=== PATIENT | female | born 1960 | race Caucasian/White ===

== ENCOUNTER 2021-02-13 10:03 | Emergency (ER) | payer BC, SELFPAY ==
--- NOTE | 2021-02-13 10:19 | ED.URI ---
HPI - URI/Sore Throat General Chief Complaint: Upper Respiratory Infection Stated Complaint: sorethroat,cough,runny nose Time Seen by Provider: 02/13/21 10:19 Source: patient, RN notes reviewed and old records reviewed History of Present Illness HPI Narrative: 60-year-old female presents to the [facility] with complaints of sore throat, cough and runny nose. Patient states that started Saturday, 6 days ago. Has improvement with Mucinex. Patient reports that she is Covid vaccinated and boosted. Also vaccinated against the flu this year. Patient reports that she was tested negative for COVID-19 at [facility] on Saturday, 3 days ago MD elicited complaint: cough, sore throat and rhinorrhea Related Data Allergies Allergy/AdvReac Type Severity Reaction Status Date / Time phenytoin Allergy Unknown Nausea Verified 02/13/21 10:37 promethazine Allergy Unknown Unknown Verified 02/13/21 10:37 Review of Systems Review of Systems: All systems reviewed & are unremarkable except as noted in HPI and below Constitutional: Constitutional: Reports no additional constitutional complaints Eyes: Eyes: Reports no additional eye complaints, Denies change in vision and Denies photophobia ENT: Reports as per HPI, Reports nasal congestion and Reports sore throat Cardiovascular: Cardiovascular: Denies chest pain Respiratory: Respiratory: Reports as per HPI, Denies chest congestion, Reports cough, Denies dyspnea and Denies wheezing Gastrointestinal: Gastrointestinal: Reports no additional gastrointestinal complaints Musculoskeletal: Musculoskeletal: Reports no additional musculoskeletal complaints Integumentary/Breasts: Skin/Breast: Reports system reviewed and no additional complaints, except as docu Neurologic: Reports system reviewed and no additional complaints, except as documented Psychiatric: Psychiatric: Reports no additional psychiatric complaints Allergic/Immunologic: Allergic/Immunologic: Reports no additional allergic/immunologic complaints [facility] Past Medical History Medical History (Updated 02/13/21 @ 10:49 by Radha Alfred) Rheumatoid arthritis of unspecified site with involvement of other organs and systems Vitamin D deficiency Surgical History Surgical History H/O tubal ligation H/O: hysterectomy Hx of tonsillectomy S/P removal of right ovary Family History Family History Sibling Depression Hypertension Family history of elevated blood lipids Grandparent Family history of Alzheimer's disease Family history of malignant neoplasm of brain Social History Social History Smoking status: Never smoker Second hand tobacco smoke exposure: No Smoking end date: 02/25/83 Alcohol intake: never Substance use: never Substance use type: does not use Gender identity (if verbalized by the patient): Female Spiritual care concerns: No Agree to blood products: Yes Comments At the time of my signature, I reviewed and agree with the nursing past medical, surgical, social, and family history. There is no relevant family history pertinent to the patient complaint. Exam Const: General: healthy appearing, no acute distress and alert Nutritional Appearance: well nourished Orientation/consciousness: patient oriented x3 Limitations: no limitations HENMT: Head: normal to inspection Ears: external ears normal, TM's normal bilaterally and EAC's normal Mouth: Yes Normal oral and palatal mucosa present and Yes lip normal Throat: uvula midline, postnasal drainage, tonsils absent and no uvular edema Eyes: Conjunctivae: conjunctivae normal Pupils: Equal, round and reactive pupils present Direct Ophthalmoscopy: no photophobia Neck: Neck: normal visual inspection, no lymphadenopathy and no meningeal signs Chest: Chest palpation & inspection: normal inspection of the chest Resp
[2021-02-13 10:29] VITALS: BP 140/83; PULSE 98; RESP 18; TEMP 37.1; O2SAT 98
== END 2021-02-13 10:47 | disposition home or self-care (01) ==
PROVIDERS: Emergency Provider Nurse Practitioner; PCP Family Medicine
DX: R09.82 Postnasal drip (principal); J06.9 Acute upper respiratory infection, unspecified; M06.9 Rheumatoid arthritis, unspecified
CPT/HCPCS: 99213; G0463

== ENCOUNTER 2025-01-31 11:15 | Emergency (ER) | payer MEDICARE, BC, SELFPAY ==
--- NOTE | ~2025-01-31 | XR_ITS ---
Examination: XR chest 2V Clinical History: cp Comparison: None Technique: PA and Lateral Findings: Cardiomediastinal silhouette normal size and configuration. Lungs clear. A few calcified granulomata. No acute bony abnormality. IMPRESSION: 1. No acute cardiopulmonary findings. Reviewed, dictated and finalized at location [facility]
--- OUTSIDE RECORDS SUMMARY | 2025-01-31 11:16 | XMS_ITS | Clinical Summary ---
Author Organization [facility] [address] [place] [id number] Care Team Providers Care Linux Solaris Administrator Name Role Phone Elza Chatterjee Primary Care Provider [phone]- [phone] Allergies Active Allergy Reactions Criticality Noted Date Comments Promethazine Other (See comments) Reaction: burning, Active Problems Problem Noted Date Diagnosed Date Rheumatoid arthritis 04/29/2012 Overview (06/01/2016): Rheumatoid arthritis Encounters Date Type Department Care Team Description 12/16/2024 8:54 AM CDT - 12/16/2024 11:59 PM CDT Hospital Encounter [address] [address] Abnormal mammogram Discharge Disposition: Discharge to home or self care 12/16/2024 8:53 AM CDT - 12/16/2024 11:59 PM CDT Hospital Encounter [facility] Office [address] [address] Abnormal mammogram Discharge Disposition: Discharge to home or self care 12/04/2024 8:41 AM CDT - 12/04/2024 11:59 PM CDT Hospital Encounter [address] [address] Screening mammogram, encounter for Discharge Disposition: Discharge to home or self care from Last 3 Months Immunizations Immunization Administration Dates Next Due Pneumococcal Polysaccharide PPV23 11/11/2012 Surgical History Surgery Date Site/Laterality Comments OTHER SURGICAL HISTORY ovarectomy TONSILLECTOMY tonsillectomy HYSTERECTOMY 02/25/2013 Family History Medical History Relation Name Comments Stomach cancer Father 2 Cancer -stoma ch; Cause of : Cancer -stomach Brain cancer Mother 2 Brain tumor; Ca use of : Brain tumor Relation Name Status Comments Father 1 (Age 61) Father 2 Mother 1 (Age 30) Mother 2 Social History Tobacco Use Types Packs/Day Years Used Date Smoking Tobacco: Never Assessed Alcohol Use Standard Drinks/Week Comments No 0 (1 standard drink = 0.6 oz pur e alcohol) Comments No Sex and Gender Information Value Date Recorded Sex Assigned at Not on file Legal Sex Female 4:57 PM SALES ESTIMATOR Gender Identity Not on file Sexual Orientation Not on file Obstetrics History Para Term AB IAB SAB Ectopic Multiple Livin g Live Births 0 0 0 0 0 0 0 0 0 0 0 Last Filed Vital Signs Vital Sign Reading Time Taken Comments Blood Pressure 115/80 05/12/2013 8:18 AM CDT Pulse 70 05/12/2013 8:18 AM CDT Temperature - - Respiratory Rate - - Oxygen Saturation - - Inhaled Oxygen Concentration - - Weight 62.5 kg (137 lb 12.6 oz) 12/04/2024 9:12 AM CDT Height 172.7 cm (5' 8) 12/04/2024 9:12 AM CDT Body Mass Index 20.95 12/04/2024 9:12 AM CDT Plan of Treatment Health Maintenance Due Date Last Done Comments Colon Cancer Screening-Colonoscopy 1960 Depression Screening 1960 Fall Risk Assessment 1960 Hepatitis C Screening 1960 Hepatitis B Screening 1976 Zoster Vaccine (2 of 3) 02/09/2015 12/15/2014 Pneumococcal vaccine 65+ (3 of 3 - PCV20 or PCV21) 06/14/2023 06/13/2018, 11/11/2012 Well Visit 65+ 10/22/2023 Covid-19 Vaccine (5 - 2024-2 6 season) 2024 06/08/2021, 12/19/2020, 05/27/2020, Additional history exists Influenza Vaccine (#1) 2024 , 12/03/2019, 11/14/2018, Additional history exists DTaP/Tdap/Td Vaccine (2 - Td or Tdap) 04/06/2025 04/06/2015 Breast Cancer Screening-Mammogram 12/04/2025 12/04/2024, 11/29/2023, 10/19/2022, Additional history exists Osteoporosis Screening-Bone Density Scan 01/16/2026 01/17/2024, 09/10/2012 Procedures Procedure Name Priority Date/Time Associated Diagnosis Comments US BREAST RIGHT LIMITED Schedule Routine, Read Routine (OP Routine) 12/16/2024 9:26 AM CDT Abnormal mammogram DIAGNOSTIC MAMMOGRAM RIGHT W ARCHIE Schedule Routine, Read Routine (OP Routine) 12/16/2024 9:02 AM CDT Abnormal mammogram SCREENING MAMMOGRAM BILATERAL W ARCHIE Schedule Routine, Read Routine (OP Routine) 12/04/2024 9:22 AM CDT Screening mammogram, encounter for DEXA AXIAL SKELETON BONE DENSITY 1 OR MORE SITES Schedule Routine, Read Routine (OP Routine) 01/17/2024 9:19 AM SALES ESTIMATOR Other primary ovarian failure from Last 3 Months or Most Recently Relevant to Health Maintenance Results * US Breast Right Limited (12/16/2024 9:26 AM CDT) Anatomical Region Laterality Modality Breast Right Ultrasound 12/16/2024 1:13 PM CDT Impressions 12/16/2024 1:13 PM CDT Possible architectural distortion within the right breast is probably benign. OVERALL FINAL ASSESSMENT: BI-RADS Category 3: Probably Benign. RECOMMENDATION: The patient should return in 6 months time for a diagnostic right mammogram. Electronically signed by: Quinten Morris 12/16/2024 1:13 PM CDT EXAMINATION: RIGHT UNILATERAL DIGITAL DIAGNOSTIC MAMMOGRAM AND DIGITAL BREAST TOMOSYNTHESIS; RIGHT BREAST SONOGRAM HISTORY: Abnormal screening study COMPARISON: 12/04/2024, 01/17/2024, 11/29/2023, 10/19/2022 TECHNIQUE: Full field digital mammographic views of the RIGHT breast were performed, including computer aided detection (CAD) and digital breast tomosynthesis (DBT). Directed ultrasound evaluation of the RIGHT breast was performed. BREAST PARENCHYMAL COMPOSITION: The breasts are heterogeneously dense, which may obscure small masses. MAMMOGRAM FINDINGS: Additional views are overall less impressive, particularly on tomographic images for architectural distortion in the screening study. There are no suspicious microcalcifications. SONOGRAM FINDINGS: Targeted right breast ultrasound was performed in the region of interest. No sonographic abnormality is appreciated. us Elzasharad Chatterjee PA [facility] MAMMO PROCEDURES Final Result * Diagnostic Mammogram Right W Archie (12/16/2024 9:02 AM CDT) Anatomical Region Laterality Modality Breast Right Mammography 12/16/2024 12:5 0 PM CDT Impressions 12/16/2024 12:50 PM CDT Possible architectural distortion within the right breast is probably benign. OVERALL FINAL ASSESSMENT: BI-RADS Category 3: Probably Benign. RECOMMENDATION: The patient should return in 6 months time for a diagnostic right mammogram. Electronically signed by: Eliz Hayden M.D. Narrative 12/16/2024 12:50 PM CDT EXAMINATION: RIGHT UNILATERAL DIGITAL DIAGNOSTIC MAMMOGRAM AND DIGITAL BREAST TOMOSYNTHESIS; RIGHT BREAST SONOGRAM HISTORY: Abnormal screening study COMPARISON: 12/04/2024, 01/17/2024, 11/29/2023, 10/19/2022 TECHNIQUE: Full field digital mammographic views of the RIGHT breast were performed, including computer aided detection (CAD) and digital breast tomosynthesis (DBT). Directed ultrasound evaluation of the RIGHT breast was performed. BREAST PARENCHYMAL COMPOSITION: The breasts are heterogeneously dense, which may obscure small masses. MAMMOGRAM FINDINGS: Additional views are overall less impressive, particularly on tomographic images for architectural distortion in the screening study. There are no suspicious microcalcifications. SONOGRAM FINDINGS: Targeted right breast ultrasound was performed in the region of interest. No sonographic abnormality is appreciated. us Elzasharad OREILLY [facility] MAMMO PROCEDURES Final Result * (ABNORMAL) Screening Mammogram Bilateral W Archie (12/04/2024 9:22 AM CDT) Anatomical Region Laterality Modality Breast Bilateral Mammography Impressions 12/04/2024 10:12 AM CDT Right 1) Architectural Distortion: Right breast architectural distortion in the upper region. Assessment: 0 - Incomplete. Diagnostic mammogram with possible ultrasound is recommended. Left No evidence of malignancy. OVERALL BI-RADS FINAL ASSESSMENT: 0 - Incomplete: Needs Additional Imaging Evaluation RECOMMENDATION: Recommend right breast diagnostic mammogram with possible ultrasound. Narrative 12/04/2024 10:12 AM CDT EXAMINATION: Screening Mammogram Bilateral W Archie: 12/04/2024 COMPARISON: Relevant prior studies available at the time of interpretation were reviewed, including the most recent mammogram on: 11/29/2023. TECHNIQUE: Mammography was performed with 2D and 3D digital breast tomosynthesis (DBT) images. CAD was utilized. BREAST PARENCHYMAL COMPOSITION: The breasts are heterogeneously dense, which may obscure small masses. FINDINGS: Right 1) Architectural Distortion: There is possible architectural distortion seen in the upper region of the right breast on the MLO view. This finding needs additional imaging evaluation. Left There is no suspicious mass, calcification, or architectural distortion. 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 FINDINGS: AP LUMBAR SPINE L1-L4: Total BMD is 0.998 g/cm2 T-score is -0.4 LEFT HIP: Total BMD is 0.863 g/cm2 T-score is -0.6 Femoral neck BMD is 0.716 g/cm2 T-score is -1.2 FRAX: 10 year risk for a major osteoporotic fracture is 9.7 %, 10 year risk for a hip fracture is 1.0 % IMPRESSION: Low Bone Mass. REFERENCE: Bone mineral density: T-Score: Normal (T-score above or = -1.0) Low bone mass (T-score between -1.0 and -2.5) replaces the previously used term osteopenia Osteoporosis (T-score = or below -2.5) Z-Score: Within the expected range for age (Z-score above -2.0) Below the expected range for age (Z-score is -2.0 or below) Please see below follow up recommendations. Medical evaluation for secondary causes of low bone mineral density may be appropriate. FRAX is a World Health Organization validated fracture risk assessment tool that calculates a person's 10 year probability of a major osteoporosis related fracture and hip fracture. According to the National Osteoporosis Foundation guidelines, postmenopausal women and men age 50 or older with low bone mass and a 10 year probability of a major osteoporosis related fracture = or greater than 20% or a 10 year probability of a hip fracture = or greater than 3% should be considered for pharmacological treatment for the prevention of osteoporosis. For further information, including treatment recommendations, please refer to the 2019 ISCD Official Positions (http://www.iscd.org) and the NOF's Clinician's Guide to Prevention and Treatment of Osteoporosis (http://www.nof.org/professionals/clinical-guidelines) THIS IS AN ELECTRONICALLY VERIFIED FINAL REPORT 01/17/2024 4:31 PM - Electronically signed by Hemal Rodriguez M.D. 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 FINDINGS: AP LUMBAR SPINE L1-L4: Total BMD is 0.998 g/cm2 T-score is -0.4 LEFT HIP: Total BMD is 0.863 g/cm2 T-score is -0.6 Femoral neck BMD is 0.716 g/cm2 T-score is -1.2 FRAX: 10 year risk for a major osteoporotic fracture is 9.7 %, 10 year risk fora hip fracture is 1.0 % IMPRESSION: Low Bone Mass. REFERENCE: Bone mineral density: T-Score: Normal (T-score above or = -1.0) Low bone mass (T-score between -1.0 and -2.5) replaces thepreviously used term osteopenia Osteoporosis (T-score = or below -2.5) Z-Score: Within the expected range for age (Z-score above -2.0) Below the expected range for age (Z-score is -2.0 or below) Please see below follow up recommendations. Medical evaluation forsecondary causes of low bone mineral density may be appropriate. FRAX is a World Health Organization validated fracture risk assessmenttool that calculates a person's 10 year probability of a major osteoporosisrelated fracture and hip fracture. According to the National OsteoporosisFoundation guidelines, postmenopausal women and men age 50 or older with low bonemass and a 10 year probability of a major osteoporosis related fracture = or greater than 20% or a 10 year probability of a hip fracture = or greaterthan 3% should be considered for pharmacological treatment for the preventionof osteoporosis. For further information, including treatment recommendations, please referto the 2019 ISCD Official Positions (http://www.iscd.org) and the NOF's Clinician's Guide to Prevention and Treatment of Osteoporosis (http://www.nof.org/professionals/clinical-guidelines) THIS IS AN ELECTRONICALLY VERIFIED FINAL REPORT 01/17/2024 4:31 PM - Electronically signed by Hemal Rodriguez M.D. MF: HARLEY Report ID: [id number] Reading Location: [id number] lEza OREILLY IMG DXA PROCEDURES Final R esult from Last 3 Months or Most Recently Relevant to Health Maintenance Insurance [facility] [employer] Care Teams Linux Solaris Administrator Relationship Specialty Start Date End Date Elza Chatterjee PA [address] [place] [id number] PCP - General Physician Transportation Operations Manager 07/10/22
--- OUTSIDE RECORDS SUMMARY | 2025-01-31 11:16 | XMS_ITS | Clinical Summary ---
Author Organization [facility] [employer] Address [address] [place] [address] Care Team Providers Care Concession Cashier Name Role Phone Unavailable Primary Care Provider Unavailabl e Source Comments [facility] [employer],non-owned Affiliates and Associated Physician Practices is amultiple site organization consisting of ambulatory clinics and hospital sitesin [place], [place], [place] and [place]. This disclosure is being madepursuant to the Care Everywhere program and may not contain all information available regarding this patient. Last updated 17.[employer] Allergies Active Allergy Reactions Criticality Noted Date Comments Promethazine Nausea and/or Vomiting 06/30/2012 Medications * Be aware that medications may not be up to date on this document. Alwaysverify current medications with the patient. methotrexate 2.5 MG tabletIndicatio ns:Rheumatoid arthritis(714.0 ) (HCC) Take 2.5 mg by mouth every 7 days. Take 6 tabs once a week Active Folic Acid 800 MCG TABSIndications :Rheumatoid arthritis(714.0 ) (HCC) Take by mouth once daily. Active Ascorbic Acid (VITAMIN C) 500 MG CAPSIndications :Rheumatoid arthritis(714.0 ) (HCC) Take by mouth once daily. Active calcium carbonate-vitam in D (CALCIUM 600+D) 600-200 MG-UNIT tabletIndicatio ns:Rheumatoid arthritis(714.0 ) (HCC),Vitamin d deficiency Take 1 Tab by mouth 2 times daily. Active estradiol (ESTRACE) 1 MG tabletIndicatio ns:Vitamin D deficiency Take 1 tablet by mouth once daily 90 tablet 3 02/07/2017 Active vitamin D, ergocalciferol, (DRISDOL) 94949 UNITS capsule Take 1 capsule by mouth every 7 days 12 capsule 3 05/29/2017 Active Active Problems Problem Noted Date Diagnosed Date Hormone replacement therapy, postmenopausal 08/26 Perimenopausal 06/30/2012 Rheumatoid arthritis 06/30/2012 Overview (01/02/2015): Vitamin D deficiency 06/30/2012 Dysfunctional uterine bleeding 06/30/2012 Immunizations Immunization Administration Dates Next Due INFLUENZA VACCINE 11/01/2016,11/10/2015 TDAP (7yrs+) 04/06/2015 Family History Medical History Relation Name Comments Cancer - Other Father stomach Cancer - Other Maternal Grandfather Alzheimer's Disease Maternal Grandmother Cancer - Other Mother Brain tumor CAD (Coronary Artery Disease) Paternal Grandfather of [place] Paternal Grandfather Depression Sister Hyperlipidemia Sister Hypertension Sister Relation Name Status Comments Father Maternal Grandfather Maternal Grandmother Alzheim ers Dz Mother Paternal Grandfather Paternal Grandmother (Age 95) di ed of old age Sister Alive Social History Tobacco Use Types Packs/Day Years Used Date Smoking Tobacco: Former Cigarettes 1 7 Smokeless Tobacco: Never Alcohol Use Standard Drinks/Week Comments No 0 (1 standard drink = 0.6 oz pur e alcohol) Comments No Sex and Gender Information Value Date Recorded Sex Assigned at Not on file Legal Sex Female 6:28 AM MEETING FACILITATOR Gender Identity Not on file Sexual Orientation Not on file Last Filed Vital Signs Vital Sign Reading Time Taken Comments Blood Pressure 110/70 07/05/2017 10:13 AM CDT Pulse 88 07/05/2017 10:13 AM CDT Temperature 36.6 C (97.8 F) 05/29/2017 8:48 AM CDT Respiratory Rate - - Oxygen Saturation 98% 07/05/2017 10:13 AM CDT Inhaled Oxygen Concentration - - Weight 60.8 kg (134 lb) 07/05/2017 10:13 AM CDT Height 172.7 cm (5' 8) 07/05/2017 10:13 AM CDT Body Mass Index 20.37 07/05/2017 10:13 AM CDT Plan of Treatment Health Maintenance Due Date Last Done Comments BONE DENSITY TESTING 1960 COLOGUARD (AGES 45-75) - COLON CA SCREENING [address] COLONOGRAPHY - COLON CA SCREENING 1960 FIT - COLON CA SCREENING 1960 FLEX SIG - COLON CA SCREENING 1960 COVID-19 VACCINE (#1) 10/22/1963 PNEUMOCOCCAL VACCINE 50+ (1 of 1 - PCV) 2008 Respiratory Syncytial Virus (RSV) Vaccine Pt: or over 60 yrs (1 - Risk 50-74 years 1-dose series) 2008 ZOSTER VACCINE (1 of 2) 2008 MAMMOGRAM 01/31/2017 01/31/2015, 08/26, 09/26/2011 (Previously completed), Additional history exists LIPID TESTING 09/01/2017 09/01/2012 COLONOSCOPY - COLON CA SCREENING 08/19/2022 08/19/2012, 02/25/2002 (Previously completed) Colorectal Cancer Screening 08/19/2022 DEPRESSION SCREENING 02/26/2024 INFLUENZA VACCINE (#1) 2024 11/01/2016, 2015 DTAP/TDAP/TD VACCINES (2 - Td or Tdap) 04/06/2025 04/06/2015 HEPATITIS C SCREENING Completed 03/12/2016, 017 HEPATITIS B VACCINE Aged Out No longe r eligible based on patient's age to complete this topic HIB VACCINE Aged Out No longer eligi ble based on patient's age to complete this topic HPV VACCINE Aged Out No longer eligi ble based on patient's age to complete this topic MENINGOCOCCAL (Group B) VACCINE SHARED DECISION-MAKING Aged Out No longer eligible based on patient's age to complete this topic MENINGOCOCCAL GROUPS A/C/Y/W VACCINE Aged Out No longer eligible based on patient's age to complete this topic Procedures Procedure Name Priority Date/Time Associated Diagnosis Comments HEPATITIS SCREEN ACUTE W/ REFLX CONFIRM 03/05/2016 8:38 AM MEETING FACILITATOR MAMMO BILAT SCREENING Routine 01/31/2015 Visit for screening mammogram LIPID PROFILE Routine 09/01/2012 8:32 AM CDT Perimenopausal Screening for cholesterol level Screening for thyroid disorder from Last 3 Months or Most Recently Relevant to Health Maintenance Results * HEPATITIS SCREEN ACUTE W/ REFLX CONFIRM (03/05/2016 8:38 AM MEETING FACILITATOR) Hepatitis A Virus Antibody IgM NON-REACTI VE NON-REACT [facility] Comment: Test Performed at: [facility] [address] [place] [address] NABIL MCMILLAN DO,MPH Hepatitis B Virus Surface Antigen NON-REACTI VE NON-REACT [facility] Hepatitis B Core Virus Antibody IgM NON-REACTI VE NON-REACT [facility] Hepatitis C Antibody NON-REACTI VE NON-REACT [facility] Signal to Cut-Off 0.01 <1.00 [facility] 03/05/2016 8:38 AM MEETING FACILITATOR 03/05/2016 8:40 AM MEETING FACILITATOR Wendi OREILLY-Pamela LAB - CHEMISTRY ORDERABLES Final Result Performing Organization Address City/State/[facility] Co de Phone Number [facility] [address] [place] [place] [phone] * MAMMO SCREENING DIGITAL IMAGE BILAT (01/31/2015) Anatomical Region Laterality Modality Breast Bilateral Other Wendi Zayda Culvert PA-C MAMMO ORDERABLES Final Res ult * (ABNORMAL) LIPID PROFILE (09/01/2012 8:32 AM CDT) Pathologist [facility] Cholesterol 177 125 - 200 mg/dL [facility] HDL Cholesterol 45(L) > OR = 46 mg/dL [facility] Triglycerides 85 <150 mg/dL [facility] LDL Calculated 115 <130 mg/dL (calc) [facility] Comment: Desirable range <100 mg/dL for patients with CHD or diabetes and <70 mg/dL for diabetic patients with known heart disease. CHOL/HDLC RATIO 3.9 < OR = 5.0 (calc) [facility] Non HDL Cholesterol 132 mg/dL (calc) [facility] Comment: Target for non-HDL cholesterol is 30 mg/dL higher than LDL cholesterol target. Test Performed at: [facility] [address] NABIL MCMILLAN DO,MPH Blood specimen (specimen) BLOOD SPECIMEN / Unknown 09/01/2012 8:32 AM CDT 09/01/2012 8:33 AM CDT Minna Guzman DO LAB - CHEMISTRY ORDERABLES Fin al Result [facility] [id number] [place] [address] from Last 3 Months or Most Recently Relevant to Health Maintenance Insurance [facility], [facility]
--- OUTSIDE RECORDS SUMMARY | 2025-01-31 11:16 | XMS_ITS | Encounter Summary ---
Author Organization [facility] Address [address] [place] [address] Care Team Providers Care Superintendent Drivers Name Role Phone Unavailable Primary Care Provider Unavailabl e Encounter Details Date Type Department Care Team (Late st Contact Info) Description 02/14/2022 Lab Requisition [facility] [address] [place] [address] Yung Christianson MD [address] [place] [address] Social History Tobacco Use Types Packs/Day Years Used Date Smoking Tobacco: Former Cigarettes 1 7 Smokeless Tobacco: Never Alcohol Use Standard Drinks/Week Comments No 0 (1 standard drink = 0.6 oz pur e alcohol) Comments No Sex and Gender Information Value Date Recorded Sex Assigned at Not on file Legal Sex Female 6:28 AM CATTLE ALLEY WORKER Gender Identity Not on file Sexual Orientation Not on file documented as of this encounter Plan of Treatment Not on file documented as of this encounter Procedures Procedure Name Priority Date/Time Associated Diagnosis Comments DERMATOPATHOLOGY Routine 02/13/2022 12:0 0 AM CATTLE ALLEY WORKER documented in this encounter Results * DERMATOPATHOLOGY (02/13/2022 12:00 AM CATTLE ALLEY WORKER) Case Report Dermatopathology Report Case: [id number] Authorizing Provider: Yung Christianson MD Collected: 02/13/2022 12:00 AM Ordering Location: [facility] Received: 02/14/2022 06:36 AM Pathologist: Tata Rowe MD Specimen: Skin, mid post crown 2 4:38 PM CATTLE ALLEY WORKER DERMATOPATHOLOGY LABORATORY Final Diagnosis Specimen A. SKIN, mid post crown: CHRONIC PERIFOLLICULITIS (L73.8) ULCER WITH SUPERFICIAL DERMAL NECROSIS (L98.499) (see microscopic description) 2 4:38 PM CATTLE ALLEY WORKER DERMATOPATHOLOGY LABORATORY at [address] CATTLE ALLEY WORKER Clinical History Folliculitis vs. BCCA vs. SCCA Path: [id number] 2 4:38 PM CATTLE ALLEY WORKER DERMATOPATHOLOGY LABORATORY Gross Description Specimen A: Received is one formalin filled container labeled with the patient's name and designated mid post crown. The specimen consists of a shave biopsy measuring 7x5x1 mm. Jar 0. 4:38 PM [facility] DERMATOPATHOLOGY LABORATORY Microscopic Description Specimen A. SKIN, mid post crown: Sections show a perifollicular lymphohistiocytic infiltrate. There is an ulcer, beneath which there are vascular proliferation, fibroblasts, and an edematous stroma. Bacteria are present in the ulcer. 2 4:38 PM [facility] DERMATOPATHOLOGY LABORATORY Disclaimer An external and internal positive and negative controls are appropriate for the histochemical, immunohistochemical and immunofluorescence stain(s) in this case (if any), except where stated explicitly. The performance characteristics of the stain(s) cited in this report were developed and its performance characteristic determined by the Dermatopathology Laboratory at [facility], directed by Dr. Kelvin Rowe. These tests need not be, and therefore are not, approved by the [place] Food and Drug Administration. The tests are used for clinical purposes. Billing Codes Specimen Charges Stain Charges 34880 1 2 4:38 PM CATTLE ALLEY WORKER DERMATOPATHOLOGY LABORATORY Embedded Images 2 4:38 PM CATTLE ALLEY WORKER DERMATOPATHOLOGY LABORATORY Pathology/Cytolog y TISSUE SPECIMEN FROM SKIN / Unknown 02/13/2022 02/14/2022 6:36 AM CATTLE ALLEY WORKER us Yung Christianson MD LAB - PATHOLOGY/CYTOLOGY ORDER STU Final Result DERMATOPATHOLOGY LABORATORY [facility] - Department of Dermatology [facility] Medicine [address] [place] [address], [address] [phone] documented in this encounter Visit Diagnoses Not on filedocumented in this encounter
[2025-01-31 11:18] VITALS: BP 154/93; PULSE 87; RESP 16; TEMP 36.4; O2SAT 100
--- NOTE | 2025-01-31 11:25 | ECG_ITS ---
Test Date: 2025-01-31 11:45:35 Measurements Intervals Sebastian Rate: 72 P: 0 MO: 0 QRS: 9 QRSD: 101 T: 1 QT: 396 QTc: 434 Interpretive Statements SINUS RHYTHM WITH NON-CONDUCTED ATRIAL PREMATURE COMPLEXES INCOMPLETE RIGHT BUNDLE BRANCH BLOCK BORDERLINE ST-T WAVE ABNORMALITY- ANTEROLAT/INF LEADS BASELINE ARTIFACT- I, II, III, AVR, AVL, AVF, V1, V3-V6 BORDERLINE ECG No previous ECG available for comparison Electronically Signed On 01-31-2025 19:30:46 TELECOMMUNICATION EQUIPMENT REPAIRER by Lalo Trejo D.O.
[2025-01-31 11:55] LABS: Hematocrit 38.6 % (37.0-47.0); Hemoglobin 12.9 g/dL (12.0-15.0); Immature Granulocyte Percent A 0.4 % (0-0.5); Lymphocytes Absolute Auto 1.70 K/mm3 (0.9-3.2); Mean Corpuscular HGB Conc 33.4 g/dl (32-36); Mean Corpuscular Hemoglobin 29.9 pg (26-34); Mean Corpuscular Volume 89.6 fl (80-100); Nucleated Red Blood Cells Absolute Auto 0.000 K/mm3 (0.0-0.012); Nucleated Red Blood Cells Perc 0.0 % (0.0-0.2); Platelet Count Result 178 k/mm3 (150-375); Red Blood Count 4.31 M/mm3 (4.2-5.4); White Blood Count 8.4 K/mm3 (4.5-10.0)
[2025-01-31 12:09] LABS: INR 1.1; Partial Thromboplastin Time 27.7 Seconds (22.3-36.8); Prothrombin Time 14.4 Seconds (11.1-14.7)
[2025-01-31 12:15] LABS: Alanine Aminotransferase 26 U/L (6-35); Albumin Level 4.8 g/dL (3.5-5.1); Alkaline Phosphatase 75 U/L (38-126); Anion Gap 10 mmol/L (4-12); Aspartate Amino Transferase 36 U/L (14-36); Bilirubin,Total 1.4 mg/dL (0.2-1.3); Blood Urea Nitrogen 26 mg/dL (7-17); Calcium 9.8 mg/dL (8.4-10.2); Carbon Dioxide 22 mmol/L (22-30); Chloride 110 mmol/L (98-107); Estimated CRCL calculation 66 ml/min; Estimated Glomerular Filt Rate > 60; Glucose 97 mg/dL (65-110); Lipase 72 U/L (23-300); Potassium 3.7 mmol/L (3.4-5.0); Sodium 142 mmol/L (137-145); Total Protein 8.2 g/dL (6.3-8.2)
--- OUTSIDE RECORDS SUMMARY | 2025-01-31 12:17 | XMS_ITS | Clinical Summary ---
Author Organization [facility] [employer] Address [address] [place] [address] Care Team Providers Care Plant Associate Name Role Phone Unavailable Primary Care Provider Unavailabl e Source Comments [facility] [employer],non-owned Affiliates and Associated Physician Practices is amultiple site organization consisting of ambulatory clinics and hospital sitesin [place], [place], [place] and [place]. This disclosure is being madepursuant to the Care Everywhere program and may not contain all information available regarding this patient. Last updated 17.[employer] Allergies Active Allergy Reactions Criticality Noted Date [...] 3 02/07/2017 Active vitamin D, ergocalciferol, (DRISDOL) 19467 UNITS capsule Take 1 capsule by mouth [...] CAD (Coronary Artery Disease) Paternal Grandfather of [place] Paternal Grandfather Depression Sister Hyperlipidemia Sister Hypertension [...] on file Legal Sex Female 6:28 AM CASE WORKER Gender Identity Not on file Sexual [...] ACUTE W/ REFLX CONFIRM 03/05/2016 8:38 AM CASE WORKER MAMMO BILAT SCREENING Routine 01/31/2015 Visit for screening mammogram LIPID PROFILE Routine 09/01/2012 8:32 AM CDT Perimenopausal Screening for cholesterol level Screening for thyroid disorder from Last 3 Months or Most Recently Relevant to Health Maintenance Results * HEPATITIS SCREEN ACUTE W/ REFLX CONFIRM (03/05/2016 8:38 AM CASE WORKER) Hepatitis A Virus Antibody IgM NON-REACTI VE NON-REACT [facility] Comment: Test Performed at: [facility] [address] [place] [address] NABIL MCMILLAN DO,MPH Hepatitis B Virus Surface Antigen NON-REACTI VE NON-REACT J[facility]OBY [facility] Hepatitis B Core Virus Antibody IgM NON-REACTI VE NON-REACT [facility] Hepatitis C Antibody NON-REACTI VE NON-REACT J[facility] Signal to Cut-Off 0.01 <1.00 [facility] 03/05/2016 8:38 AM CASE WORKER 03/05/2016 8:40 AM CASE WORKER Wendi OREILLY-Pamela LAB - CHEMISTRY ORDERABLES Final Result Performing Organization Address City/State/[facility] Co de Phone Number [facility] [address] [place] [phone] * MAMMO SCREENING DIGITAL IMAGE BILAT (01/31/2015) Anatomical Region Laterality Modality Breast Bilateral Other Wendi Zadya Culvert PA-C MAMMO ORDERABLES Final Res ult * (ABNORMAL) LIPID PROFILE (09/01/2012 8:32 AM CDT) Pathologist [facility] Cholesterol 177 125 - 200 mg/dL [facility] [...] than LDL cholesterol target. Test Performed at: [facility] [address] NABIL MCMILLAN DO,MPH Blood specimen (specimen) BLOOD SPECIMEN / Unknown 09/01/2012 8:32 AM CDT 09/01/2012 8:33 AM CDT Minna Guzman DO LAB - CHEMISTRY ORDERABLES Fin al Result [facility] [id number] [place] [address] from Last 3 Months or Most Recently Relevant to Health Maintenance Insurance [facility]
--- OUTSIDE RECORDS SUMMARY | 2025-01-31 12:18 | XMS_ITS | Clinical Summary ---
Author Organization [facility] [address] [place] [address] Care Team Providers Care Aircraft Manager Name Role Phone Elza Chatterjee Primary Care Provider [phone] Allergies Active Allergy Reactions Criticality Noted Date Comments Promethazine Other (See comments) Reaction: burning, Active Problems Problem Noted Date Diagnosed Date Rheumatoid arthritis 04/29/2012 Overview (06/01/2016): Rheumatoid arthritis Encounters Date Type Department Care Team Description 12/16/2024 8:54 AM CDT - 12/16/2024 11:59 PM CDT Hospital Encounter [address] [address] Abnormal mammogram Discharge Disposition: Discharge to home or self care 12/16/2024 8:53 AM CDT - 12/16/2024 11:59 PM CDT Hospital Encounter [facility] Office [address] [address] Abnormal mammogram Discharge Disposition: Discharge to home or self care 12/04/2024 8:41 AM CDT - 12/04/2024 11:59 PM CDT Hospital Encounter [address] [address] Screening mammogram, encounter for Discharge Disposition: Discharge [...] on file Legal Sex Female 4:57 PM CLOUD ENGAGEMENT PARTNER Gender Identity Not on file Sexual Orientation [...] Read Routine (OP Routine) 01/17/2024 9:19 AM CLOUD ENGAGEMENT PARTNER Other primary ovarian failure from Last 3 [...] abnormality is appreciated. us Elzasharad Chatterjee PA [facility] MAMMO PROCEDURES Final Result * Diagnostic Mammogram [...] sonographic abnormality is appreciated. us Elzasharad OREILLY [facility] MAMMO PROCEDURES Final Result * (ABNORMAL) Screening [...] 1 or 2 Site (01/17/2024 9:19 AM CLOUD ENGAGEMENT PARTNER) Anatomical Region Laterality Modality Body N/A Mammography 01/17/2024 4:29 PM CLOUD ENGAGEMENT PARTNER Narrative 01/17/2024 4:31 PM CLOUD ENGAGEMENT PARTNER EXAM DESCRIPTION: DEXA AXIAL SKELETON BONE DENSITY 1 OR MORE SITES REASON FOR STUDY: 63 y/o year old F with given history of: E28.39 Postmenopausal Commissioner Of Relocation Services/Model: [employer] A (S/N [id number]) CLINICAL INFORMATION: Current height: 66.5 inches Maximum [...] Hemal Rodriguez M.D. MF: HARLEY Report ID: [id number] Reading Location: [id number] Procedure Note Hemal Rodriguez MD - 01/17/2024 EXAM DESCRIPTION: DEXA AXIAL SKELETON BONE DENSITY 1 OR MORE SITES REASON FOR STUDY: 63 y/o year old F with given history of: E28.39 Postmenopausal Commissioner Of Relocation Services/Model: [employer] A (S/N [id number]) CLINICAL INFORMATION: Current height: 66.5 inches Maximum [...] Hemal Rodriguez M.D. MF: HARLEY Report ID: [id number] Reading Location: [id number] Elza OREILLY IMG DXA PROCEDURES Final R esult from Last 3 Months or Most Recently Relevant to Health Maintenance Insurance [facility] [employer] Care Teams Aircraft Manager Relationship Specialty Start Date End Date Elza Chatterjee PA [address] [place] [id number] PCP - General Physician News Copy Editor 07/10/22
[2025-01-31 12:21] LABS: Troponin I < 0.012 ng/mL (0.000-0.034)
[2025-01-31 13:00] VITALS: BP 146/82; PULSE 84; RESP 18; O2SAT 97
--- NOTE | 2025-01-31 13:19 | ED.GENADULT ---
HPI - General Adult General Chief complaint: Anxiety Stated complaint: anxiety Time Seen by Provider: 01/31/25 12:05 History of Present Illness HPI narrative: 64-year-old female presents emergency department for evaluation for chest tightness associated with a recent upper respiratory infection. Patient also reports over last few days he has had increased anxiety. Patient denies any anxiety at baseline but states the last few days she has had increased her palpitations and fear being home alone. Patient is anxious appearing at time of evaluation. Patient denies any suicidal homicidal ideation. Patient states she does have follow-up scheduled with primary care physician tomorrow but wanted to be evaluated today consisted status of the symptoms. Related Data Home Medications ?Medication ?Instructions ?Recorded ?Confirmed ?Last Taken ?Type calcium carbonate 500 mg PO DAILY 12/20/21 01/06/25 Unknown History vitamin D 3 1999 See Rx Instructions .Route .COMPLEX 12/20/21 01/06/25 Unknown History hydroxychloroquine 200 mg tablet 200 mg PO 12/31/24 01/06/25 Unknown History estradiol 0.5 mg tablet See Rx Instructions PO .COMPLEX 01/06/25 01/06/25 Unknown History Allergies Allergy/AdvReac Type Severity Reaction Status Date / Time phenytoin Allergy Unknown Nausea Verified 01/06/25 10:44 promethazine Allergy Unknown Unknown Verified 01/06/25 10:44 Review of Systems Review of Systems: All systems reviewed & are unremarkable except as noted in HPI and below PMFSH Past Medical History Medical History Hyperlipidemia Postmenopausal HRT (hormone replacement therapy) Rheumatoid arthritis of unspecified site with involvement of other organs and systems Vitamin D deficiency Surgical History Surgical History H/O tubal ligation H/O: hysterectomy Hx of tonsillectomy S/P removal of right ovary Family History Family History Sibling Depression Hypertension Family history of elevated blood lipids Grandparent Family history of Alzheimer's disease Family history of malignant neoplasm of brain Social History Social History (Updated 01/06/25 @ 10:49 by Yvonne Oviedo) Social History: 01/25/24 patient very confident with medical forms Smoking status: Former smoker Second hand tobacco smoke exposure: No Smoking end date: 02/25/83 Alcohol intake: never Substance use: never Substance use type: does not use Lack of Transportation: No Lack of Food: Never True Current Housing: I Have Housing Concerned About Future Housing: No Difficulty Paying Gas/Electric Bills: No Difficulty Paying for Meds: No Currently Unemployed: No Education: Associate Degree Difficulty w/ Childcare or Family Care: No Living arrangements: alone Occupation/Education: retired Gender identity (if verbalized by the patient): Female Spiritual care concerns: No Agree to blood products: Yes Exam Narrative: APPEARANCE: Well appearing, no pain, no distress, well-nourished. HEAD: normocephalic, atraumatic. EYES: PERRLA/EOMI, conjunctivae clear. NOSE: Normal no drainage EARS:TMS clear with good light reflex. THROAT: Pharynx clear, no exudate. NECK: Supple. No adenopathy, no masses. RESPIRATORY: Airway patent, respirations nonlabored. Clear to auscultation bilaterally, no rales, rhonchi, wheezing. CARDIOVASCULAR: Regular rate and rhythm without murmurs rubs or gallops. ABDOMINAL: Soft, nontender, nondistended, normal bowel sounds MUSCULOSKELETAL: Moves all extremities. Strength/ROM intact, No edema, No calf tenderness. NEURO: Alert. Cranial nerves II through XII intact. Good gait. Good coordination SKIN: Warm, dry. Normal Color PSYCHIATRIC: Anxiety Course Vital Signs Vital signs: Vital Signs Temperature 97.6 F 01/31/25 11:18 Pulse Rate 87 01/31/25 11:18 Respiratory Rate 16 01/31/25 11:18 Blood Pressure 154/93 H 01/31/25 11:18 Pulse Oximetry 100 01/31/25 11:18 Oxygen Delivery Room Air 01/31/25 11:18 Temperature 97.6 F 01/31/25 11:18 Pulse Rate 87 01/31/25 14:52 Respiratory Rate 24 H 01/31/25 14:52 Blood Pressure 136/86 01/31/25 14:52 Pulse Oximetry 98 01/31/25 14:52 Oxygen Delivery Room Air 01/31/25 11:18 MDM MDM Narrative Medical decision making narrative: 64-year-old female presents emergency department for evaluation for persistent cough and chest tightness along with associated anxiety. Patient is currently afebrile with no leukocytosis and hemoglobin of 12.9. INR of 1.1. Troponin was negative. Patient's x-ray shows no no acute cardiopulmonary abnormality. Patient was treated with Ativan for anxiety and visual for chest tightness. On re-evaluation patient states her symptoms are resolved. Patient was provided a short prescription for Ativan patient is also provided Adderall healer for shortness of breath. Patient was encouraged close follow-up with her primary care physician. Differential Diagnosis Differential Diagnosis: COVID, RSV, influenza, ACS, anxiety, pneumonia Lab Data MDM Lab Attestation statement: I personally reviewed the patient's lab results. 01/31/25 11:50 01/31/25 11:50 Labs: Lab Results 01/31/25 Range/Units 11:50 WBC 8.4 (4.5-10.0) K/mm3 RBC 4.31 (4.2-5.4) M/mm3 Hgb 12.9 (12.0-15.0) g/dL Hct 38.6 (37.0-47.0) % MCV 89.6 (80-100) fl MCH 29.9 (26-34) pg MCHC 33.4 (32-36) g/dl RDW 11.9 (11.5-14.5) % Plt Count 178 (150-375) k/mm3 MPV 11.9 H (7.4-10.4) fl Immature Gran % (Auto) 0.4 (0-0.5) % Neut % (Auto) 71.6 (45.5-73.1) % Lymph % (Auto) 20.1 (18.3-44.2) % Hickman % (Auto) 7.3 (2.6-8.5) % Eos % (Auto) 0.4 (0-4.4) % Baso % (Auto) 0.2 (0.2-1.2) % Lymph # (Auto) 1.70 (0.9-3.2) K/mm3 Hickman # (Auto) 0.6 (0.1-0.6) K/mm3 Eos # (Auto) 0.0 (0-0.3) K/mm3 Baso # (Auto) 0.0 (0.0-0.1) K/mm3 Abs Immat Gran (auto) 0.03 (0.00-0.031) K/mm3 Absolute Neuts (auto) 6.0 (1.3-6.7) K/mm3 Absolute Nucleated RBC 0.000 (0.0-0.012) K/mm3 Nucleated RBC % 0.0 (0.0-0.2) % PT 14.4 (11.1-14.7) Seconds INR 1.1 APTT 27.7 (22.3-36.8) Seconds Sodium 142 (137-145) mmol/L Potassium 3.7 (3.4-5.0) mmol/L Chloride 110 H (98-107) mmol/L Carbon Dioxide 22 (22-30) mmol/L Anion Gap 10 (4-12) mmol/L BUN 26 H (7-17) mg/dL Creatinine 0.66 L (0.7-1.0) mg/dL Estim Creat Clear Calc 66 ml/min Estimated GFR > 60 (59 - ) Glucose 97 (65-110) mg/dL Calcium 9.8 (8.4-10.2) mg/dL Total Bilirubin 1.4 H (0.2-1.3) mg/dL AST 36 (14-36) U/L ALT 26 (6-35) U/L Alkaline Phosphatase 75 (38-126) U/L Troponin I < 0.012 (0.000-0.034) ng/mL Total Protein 8.2 (6.3-8.2) g/dL Albumin 4.8 (3.5-5.1) g/dL Lipase 72 (23-300) U/L Imaging Data Attestation: I personally reviewed and interpreted this imaging study as follows: My impression: No acute cardiopulmonary abnormality Radiologist's impression: ITS Impressions Chest X-Ray 01/31/25 12:13 IMPRESSION: 1. No acute cardiopulmonary findings. Discharge Plan Discharge Clinical Impression: Anxiety, Bronchitis Patient Disposition: Home Condition: Stable Instructions: Antibiotic Form, Acute Bronchitis (ED), Anxiety (ED) Additional Instructions: Albuterol as needed for shortness of breath. Ativan as needed for anxiety. Have close follow-up with your primary care physician as scheduled for long-term anxiety control. If you have any worsening symptoms and please call or return to the emergency department. Patient Language: Hungarian Prescriptions: New lorazepam [Ativan] 0.5 mg tablet 0.5 mg PO BID PRN (Reason: anxiety) 5 Days Qty: 10 0RF albuterol sulfate 90 mcg/actuation HFA aerosol inhaler 1 puff inhalation QID Qty: 6.7 0RF No Action calcium carbonate 500 mg calcium (1,250 mg) tablet 500 mg PO DAILY vitamin D 3 2000 See Rx Instructions .ROUTE .COMPLEX Rx Instructions: Vitamin D3 2000 units daily; hydroxychloroquine 200 mg tablet 200 mg PO venlafaxine 37.5 mg capsule,extended release 24hr 37.5 mg PO DAILY Qty: 30 0RF estradiol 0.5 mg tablet See Rx Instructions PO .COMPLEX Rx Instructions: orally; take 1/2 tab 2 days per week Follow-up/Referrals: Elza Chatterjee I. [email or web address] [Primary Care Provider, Family Practice]
[2025-01-31] MEDS: ALBUTEROL SULFATE NEB 2.5 MG/3 ML INH INHALATION (13:23)
[2025-01-31 13:24] VITALS: PULSE 77; RESP 16
[2025-01-31 13:29] VITALS: PULSE 77; RESP 14
[2025-01-31] MEDS: LORazepam (*CRX) 1 MG TABLET PO (13:32)
[2025-01-31 14:52] VITALS: BP 136/86; PULSE 87; RESP 24; O2SAT 98
--- NOTE | 2025-01-31 15:33 | ECG_ITS ---
Test Date: 2025-01-31 15:33:39 Measurements Intervals [place] Rate: 78 P: 68 MD: 162 QRS: -15 QRSD: 78 T: 48 QT: 405 QTc: 462 Interpretive Statements SINUS RHYTHM WITH OCCASIONAL VENTRICULAR PREMATURE COMPLEXES BASELINE ARTIFACT- I, II, III, AVR, AVL ,AVF BORDERLINE ECG Compared to ECG 01/31/2025 11:45:35 NO SIGNIFICANT CHANGE Electronically Signed On 02-01-2025 11:41:30 [employer] by Lalo Trejo D.O.
== END 2025-01-31 14:53 | disposition home or self-care (01) ==
PROVIDERS: Emergency Provider Emergency Medicine; PCP Physician Assistant Medical
DX: J40 Bronchitis, not specified as acute or chronic (principal); F41.9 Anxiety disorder, unspecified; E78.5 Hyperlipidemia, unspecified; M05.60 Rheumatoid arthritis of unspecified site with involvement of other organs and systems; E55.9 Vitamin D deficiency, unspecified; Z87.891 Personal history of nicotine dependence; Z90.710 Acquired absence of both cervix and uterus; Z90.721 Acquired absence of ovaries, unilateral; I49.3 Ventricular premature depolarization; I45.10 Unspecified right bundle-branch block; R94.31 Abnormal electrocardiogram [ECG] [EKG]
CPT/HCPCS: 36415; 71046; 80053; 83690; 84484; 85025; 85610; 85730; 93005; 94640; 99284; A9270